=== PATIENT | male | born 1985 ===

== ENCOUNTER 2021-05-30 00:14 | Emergency (ER) | payer SELFPAY ==
--- NOTE | 2021-05-30 05:13 | Emergency Department Report ---
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 Patient states that it he thinks that is not the right antibiotic track and the thought of buying the truck has been bothering him for the last 5 days such that he has not been able to sleep and now feels stressed out. Patient however denies suicidal or homicidal ideation, hallucination, change in vision, chest pain or shortness of breath, nausea and vomiting, fever, chills, cough, sore throat or change in vision. MD Complaint: Anxiety -: Sudden, days(s) (5) Location: chest Radiation: non-radiation Severity scale (0 -10): 2 Quality: dull Consistency: intermittent Improves with: none Worsens with: none Associated Symptoms: denies other symptoms. denies: confusion, chest pain, cough, diaphoresis, fever/chills, headaches, loss of appetite, malaise, nausea/vomiting, rash, seizure, shortness of breath, syncope, weakness Treatments Prior to Arrival: none - Related Data Previous Rx's Medication Instructions Recorded Last Taken Type hydrOXYzine PAMOATE [Vistaril] 25 mg PO Q12HR PRN #30 capsule 05/30/21 Unknown Rx Allergies Allergy/AdvReac Type Severity Reaction Status Date / Time No Known Allergies Allergy Unverified 05/30/21 00:20 ED Review of Systems ROS: Stated complaint: STRESS Other details as noted in HPI Constitutional: denies: chills, fever Eyes: denies: eye pain, eye discharge, vision change ENT: denies: ear pain, throat pain Respiratory: denies: cough, shortness of breath, wheezing Cardiovascular: denies: chest pain, palpitations Endocrine: no symptoms reported Gastrointestinal: denies: abdominal pain, nausea, vomiting, diarrhea Genitourinary: denies: urgency, dysuria Musculoskeletal: denies: back pain, joint swelling, arthralgia Skin: denies: rash, lesions Neurological: denies: headache, weakness, paresthesias Psychiatric: anxiety. denies: depression, auditory hallucinations, visual hallucinations, homicidal thoughts, suicidal thoughts Hematological/Lymphatic: denies: easy bleeding, easy bruising ED Past Medical Hx - Past Medical History Previous Medical History?: No - Surgical History Past Surgical History?: No - Medications Home Medications: Home Medications Medication Instructions Recorded Confirmed Last Taken Type hydrOXYzine PAMOATE [Vistaril] 25 mg PO Q12HR PRN #30 capsule 05/30/21 Unknown Rx ED Physical Exam - General Limitations: No Limitations General appearance: alert, in no apparent distress - Head Head exam: Present: atraumatic, normocephalic, normal inspection - Eye Eye exam: Present: normal appearance, PERRL, EOMI Pupils: Present: normal accommodation - ENT ENT exam: Present: normal exam, normal orophraynx, mucous membranes moist, TM's normal bilaterally, normal external ear exam - Neck Neck exam: Present: normal inspection, full ROM - Respiratory Respiratory exam: Present: normal lung sounds bilaterally. Absent: respiratory distress, wheezes, rhonchi, chest wall tenderness, accessory muscle use, decreased breath sounds, prolonged expiratory - Cardiovascular Cardiovascular Exam: Present: regular rate, normal rhythm, normal heart sounds. Absent: systolic murmur, diastolic murmur, rubs, gallop - GI/Abdominal GI/Abdominal exam: Present: soft, normal bowel sounds. Absent: tenderness, guarding, rebound, hyperactive bowel sounds, hypoactive bowel sounds, organome libby - Extremities Exam Extremities exam: Present: normal inspection, full ROM, normal capillary refill. Absent: tenderness - Back Exam Back exam: Present: normal inspection, full ROM. Absent: tenderness, CVA tenderness (R), CVA tenderness (L), muscle spasm, paraspinal tenderness, vertebral tenderness - Neurological Exam Neurological exam: Present: alert, oriented X3, CN II-XII intact, normal gait, reflexes normal - Psychiatric Psychiatric exam: Present: normal mood, depressed, anxious, flat affect. Absent: agitated, manic, homicidal ideation, suicidal ideation - Skin Skin exam: Present: warm, dry, intact, normal color. 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 Patient states that it he thinks that is not the right antibiotic track and the thought of buying the truck has been bothering him for the last 5 days such that he has not been able to sleep and now feels stressed. In the ED, patient is alert and oriented x3 and is not in any distress but anxious. Patient is not homicidal or suicidal at this time. Patient was treated for anxiety in the ED and discharged home on medications for anxiety, Vistaril 25 mg every 12 hours as needed. Patient was advised to follow-up with his primary care physician in 7 to 10 days for reevaluation or return to the ED immediately if symptoms get worse. - Differential Diagnosis Anxiety; depression; Critical care attestation.: If time is entered above; I have spent that time in minutes in the direct care of this critically ill patient, excluding procedure time. ED Disposition Clinical Impression: Anxiety as acute reaction to exceptional stress Disposition: 01 HOME / SELF CARE / HOMELESS Is pt being admited?: No Does the pt Need Aspirin: No Condition: Stable Instructions: Generalized Anxiety Disorder, Adult Additional Instructions: Take medication with food, drink plenty of fluids and follow-up with your primary care physician in 7 to 10 days for reevaluation. Return to the ED immediately if symptoms get worse. Prescriptions: hydrOXYzine PAMOATE [Vistaril] 25 mg PO Q12HR PRN #30 capsule PRN Reason: Anxiety Referrals: [facility] [Provider Group] - 7-10 days Time of Disposition: 05:13 Print Language: KENYAN
[2021-05-30] MEDS ORDERED: ALPRAZolam 1 MG TAB PO ONE (05:14)
[2021-05-30 06:43] VITALS: BP 129/82
== END 2021-05-30 06:50 | disposition home or self-care (01) ==
LOC: ED 00:14
DX: F43.0 Acute stress reaction (principal)
CPT/HCPCS: 99283